=== PATIENT | female | born 1975 | race Caucasian/White ===

== ENCOUNTER 2019-04-24 09:47 | Day surgery (SDC) | payer BC ==
[~2019-04-24 09:47] MED LIST: Lactated Ringers 1,000 ML IV SCH; Sodium Chloride 0.9% 10 ML SDV IV PRN; Sodium Chloride 0.9% 10 ML Syringe FLUSH PRN; Sodium Chloride 0.9% 2.5 ML Syringe FLUSH PRN; ceFAZolin 2 GM in Premix Bag 1 BAG IV ONE
--- NOTE | 2019-04-24 10:45 | PCM.PREANE ---
Preanesthetic Assessment - Anesthesia/Transfusion/Family Hx Anesthesia History: Prior Anesthesia Without Reaction Transfusion History: No Prior Transfusion(s) - Review of Systems General: No Symptoms Pulmonary: No Symptoms Cardiovascular: No Symptoms Gastrointestinal: Abdominal Pain Neurological: No Symptoms Other: Reports: None - Physical Assessment NPO Status Date: 04/23/19 Height: 5 ft 4 in Weight: 97.522 kg ASA Class: 3 Mental Status: Alert & Oriented x3 Airway Class: Mallampati = 2 Dentition: Reports: Normal Dentition ROM/Head Extension: Full - Lab Values: Laboratory Last Values Urine HCG, Qual NEGATIVE (NEGATIVE) 04/24/19 10:00 - Allergies Allergies/Adverse Reactions: Allergies Allergy/AdvReac Type Severity Reaction Status Date / Time latex Allergy Hives Verified 04/20/19 14:33 - Blood Blood Available: No - Anesthesia Plan Pre-Op Medication Ordered: Other (fent iv in pre op holding, 50+50) - Acknowledgements Anesthesia Type Planned: General Anesthesia Pt an Appropriate Candidate for the Planned Anesthesia: Yes Alternatives and Risks of Anesthesia Discussed w Pt/Guardian: Yes Pt/Guardian Understands and Agrees with Anesthesia Plan: Yes Additional Comments: Medical History missing from surgeons H&P HTN- on ca channel kong sciatica, recent but resolved seizure disorder predating her alcohol withdrawal seizures, last seizure 2 mo ago- not related to alcohol withdrawal alcohol use disorder- severe- in early remission 8-weeks since last slip, 10 yr hx of AUD hx of alcohol withdrawal seizures murmur - unspecified, worked up 10 yr ago with Echo, told benign ADHD - on Adderall hx of thrombocytopenia Pt denies knowing of portal htn and splenomegaly, plt count 49k today, will redraw and repeat hx of anemia- chronic from malabsorption following her gastric bypass anxiety and panic attacks PTSD anesthetic plan: GET PreAnesthesia Questionnaire HEENT History: Reports: None Cardiovascular History: Reports: Heart Murmur, Hypertension Respiratory History: Reports: None Gastrointestinal History: Reports: GERD, Other (See Below) Other Gastrointestinal History: hx colon cancer Genitourinary History: Reports: Renal 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: Musculoskeletal History: Reports: Fracture Other Musculoskeletal History: hx fx ankle, tailbone and elbow Neurological History: Reports: Headaches, Chronic, Seizure Other Neuro History: seizure disorder Psychiatric History: Reports: ADD, Anxiety, Depression, PTSD Endocrine/Metabolic History: Reports: Obesity/BMI 30+ Hematologic History: Reports: None Immunologic History: Reports: None Oncologic (Cancer) History: Reports: Colon Dermatologic History: Reports: None - Past Surgical History Head Surgeries/Procedures: Reports: None HEENT Surgical History: Reports: Naso-Sinus Surgery Other HEENT Surgeries/Procedures: sinus surgerey x5 Cardiovascular Surgical History: Reports: None Respiratory Surgical History: Reports: None GI Surgical History: Reports: Appendectomy, Bariatric Procedure, Cholecystectomy , Colon, Colonoscopy Other GI Surgeries/Procedures: bowel resections x7 for colon cancer, gastric bypass Female Surgical History: Reports: Breast Reduction, Section, Lithotripsy/ESWL Endocrine Surgical History: Reports: None Neurological Surgical History: Reports: None Musculoskeletal Surgical History: Reports: None Oncologic Surgical History: Reports: Other (See Below) Other Oncologic Surgeries/Procedures: juan cath placement and removal Dermatological Surgical History: Reports: None - SUBSTANCE USE Smoking Status *Q: Never Smoker - HOME MEDS Home Medications: Home Meds Acetaminophen/oxyCODONE [Percocet 325-5 MG] 1 tab PO ASDIRECTED PRN 04/20/19 [ History] LORazepam [Ativan] 1 mg PO ASDIRECTED PRN 04/20/19 [History] Lisinopril 20 mg PO DAILY 04/20/19 [History] Omeprazole 20 mg PO DAILY 04/20/19 [History] Ondansetron HCl [Ondansetron] 4 mg PO ASDIRECTED PRN 04/20/19 [History] Promethazine [Phenergan] 1 tab PO ASDIRECTED PRN 04/20/19 [History] Tamsulosin HCl 0.4 mg PO DAILY PRN 04/20/19 [History] buPROPion HCl [Wellbutrin Xl] 300 mg PO DAILY 04/20/19 [History] levETIRAcetam [Keppra] 500 mg PO ASDIRECTED 04/20/19 [History] amLODIPine [Norvasc] 5 mg PO DAILY 04/23/19 [History] - CURRENT (IN HOUSE) MEDS Current Meds: Current Medications Lactated Ringer's (Ringers, Lactated) 1,000 mls @ 100 mls/hr IV ASDIRECTED JOSHUA Sodium Chloride (Saline Flush) 10 ml FLUSH ASDIRECTED PRN PRN Reason: Keep Vein Open Sodium Chloride (Saline Flush) 2.5 ml FLUSH ASDIRECTED PRN PRN Reason: Keep Vein Open Sodium Chloride (Normal Saline) 10 ml IV ASDIRECTED PRN PRN Reason: IV Use Discontinued Medications Cefazolin Sodium/Dextrose 2 gm (/ Premix) 50 mls @ 100 mls/hr IV ONCALL ONE Stop: 04/24/19 00:30
[2019-04-24] MEDS ORDERED: fentaNYL 50 MCG/ML SDV IVPUSH ONE ×2 (11:33→13:42)
[2019-04-24 11:35] LABS: BLOOD UREA NITROGEN,BUN 10 mg/dL (7.0-18.0); CARBON DIOXIDE,CO2 22.4 mmol/L (21.0-32.0); CHLORIDE,CL 107 mmol/L (98-107); GLUCOSE RANDOM 80 mg/dL (74-106); POTASSIUM,K 4.7 mmol/L (3.5-5.1); SODIUM,NA 141 mmol/L (136-145)
[2019-04-24] MEDS ORDERED: fentaNYL 100 MCG/2 ML SDV IVPUSH ONE (12:15)
[2019-04-24] MEDS ORDERED: Sugammadex Sodium 200 MG/2 ML VIAL ONE (12:16)
[2019-04-24] MEDS ORDERED: Ondansetron 4 MG/2 ML SDV ONE (12:18)
[2019-04-24] MEDS ORDERED: Iopamidol 408 MG/ML 50 ML SDV ONE (12:18)
[2019-04-24] MEDS ORDERED: Propofol 200 MG/20 ML SDV ONE (12:19)
[2019-04-24] MEDS ORDERED: Ketorolac 30 MG/ML SDV ONE (12:19)
[2019-04-24] MEDS ORDERED: Rocuronium 100 MG/10 ML Syringe ONE (12:19)
[2019-04-24] MEDS ORDERED: fentaNYL 100 MCG/2 ML SDV ONE ×2 (12:19→13:45)
[2019-04-24] MEDS ORDERED: Midazolam 1 MG/ML 2 ML SDV ONE (12:20)
[2019-04-24] MEDS ORDERED: ceFAZolin 1 GM Vial ONE (12:54)
[2019-04-24] MEDS ORDERED: Dexamethasone 4 MG/ML 5 ML MDV ONE (13:19)
[2019-04-24] MEDS ORDERED: PROMETHAZINE PO PRN (13:25)
[2019-04-24] MEDS ORDERED: Acetaminophen/oxyCODONE 325-5 MG Tab PO PRN (13:25)
[2019-04-24] MEDS ORDERED: Ondansetron 4 MG Tab PO PRN (13:25)
[2019-04-24] MEDS ORDERED: LORazepam 1 MG Tab PO PRN (13:25)
[2019-04-24] MEDS ORDERED: levETIRAcetam 500 MG Tab PO SCH (13:30)
[2019-04-24] MEDS ORDERED: Acetaminophen 1,000 MG in Premix Bag 1 BAG IV ONE (14:12)
--- NOTE | 2019-04-24 14:15 | PCM.POSTAN ---
POST ANESTHESIA ASSESSMENT - MENTAL STATUS Mental Status: Alert, Oriented - VITAL SIGNS Vital Signs: Last Vital Signs Temp 98.1 F 04/24/19 13:24 Pulse 70 04/24/19 13:50 Resp 11 L 04/24/19 13:50 BP 109/70 04/24/19 13:50 Pulse Ox 97 04/24/19 13:50 - RESPIRATORY Respiratory Status: Respiratory Rate WNL, Airway Patent, O2 Saturation Stable - CARDIOVASCULAR CV Status: Pulse Rate WNL, Blood Pressure Stable - GASTROINTESTINAL GI Status: No Symptoms - POST OP HYDRATION Hydration Status: Adequate & Stable - OBSERVATIONS Free Text/Narrative:: full bladder, wants to pee. has no catheter or stent.
--- NOTE | 2019-04-24 14:24 | PCM48HPAN ---
Post Anesthesia Note - EVALUATION WITHIN 48HRS OF ANESTHETIC Vital Signs in Normal Range: Yes Patient Participated in Evaluation: Yes Respiratory Function Stable: Yes Airway Patent: Yes Cardiovascular Function Stable: Yes Hydration Status Stable: Yes Pain Control Satisfactory: Yes Nausea and Vomiting Control Satisfactory: Yes Mental Status Recovered: Yes Vital Signs: Last Vital Signs Temp 98.1 F 04/24/19 13:24 Pulse 70 04/24/19 13:50 Resp 11 L 04/24/19 13:50 BP 109/70 04/24/19 13:50 Pulse Ox 97 04/24/19 13:50
--- NOTE | 2019-04-24 16:58 | OR ---
SURGEON: Sonia Richards M.D. DATE OF PROCEDURE: 04/24/2019 PREOPERATIVE DIAGNOSIS: Right lower ureteral stones. POSTOPERATIVE DIAGNOSIS: Right lower ureteral stones. OPERATION: Ureteroscopy, removal of stones. DESCRIPTION OF PROCEDURE: The patient was given general anesthesia. She was placed in dorsal lithotomy position, prepped and draped in sterile drapes. Cystourethroscopy was done that was normal. A guidewire was advanced alongside the stone in the right ureter all the way up into the renal pelvis. The lower ureter was dilated using a UroMax II balloon dilator to approximately 15-Yoruba. The 12 rigid ureteroscope was advanced in the right ureter. Both stones were removed. The first stone was removed with a grasper. The second one, which was smaller, was removed with the Zero Tip basket. Minimal disruption to the ureter. The bladder was emptied. The guidewire was removed, and the patient was moved to recovery room in good condition. ALISIA / SERGIO /[id number]
[2019-04-25] MEDS ORDERED: Omeprazole 20 MG Cap.CR PO SCH (07:30)
[2019-04-25] MEDS ORDERED: amLODIPine 5 MG Tab PO SCH (09:00)
[2019-04-25] MEDS ORDERED: Lisinopril 10 MG Tab PO SCH (09:00)
[2019-04-25] MEDS ORDERED: buPROPion 150 MG Tab.ER PO SCH (09:00)
--- NOTE | 2019-04-27 14:11 | CR ---
Abdomen: Single fluoroscopic spot view of the abdomen was obtained utilizing C- arm device. Study shows a balloon catheter within the right ureter. No further imaging was performed. Fluoroscopy time was 4.05 seconds Impression: Procedural study. Diagnostic code #2 MTDD
== END 2019-04-24 15:08 | disposition home or self-care (01) ==
LOC: MW.SDS 09:47
PROVIDERS: ATTEND Urology
DX: N20.1 Calculus of ureter (principal); K21.9 Gastro-esophageal reflux disease without esophagitis; I10 Essential (primary) hypertension; F90.9 Attention-deficit hyperactivity disorder, unspecified type; F41.9 Anxiety disorder, unspecified; F32.9 Major depressive disorder, single episode, unspecified; E66.9 Obesity, unspecified; Z79.899 Other long term (current) drug therapy; Z91.040 Latex allergy status
CPT/HCPCS: 36415; 52352; 76000; 80048; 81025; 83735; 85025; J0131; J0690; J1100; J1885; J2250; J2405; J2704; J3010; J3490; J7120; Q9966; 88300; C1769

== ENCOUNTER 2019-06-19 11:48 | Emergency (ER) | payer BC ==
[2019-06-19] MEDS ORDERED: Sodium Chloride 0.9% 1,000 ML IV ONE (12:16)
[2019-06-19] MEDS ORDERED: Ketorolac 30 MG/ML SDV IVPUSH ONE (12:16)
[2019-06-19] MEDS ORDERED: Ondansetron 4 MG/2 ML SDV IVPUSH ONE (12:16)
[2019-06-19] MEDS ORDERED: Ondansetron 4 MG Tab.DIS PO ONE (12:58)
[2019-06-19] MEDS ORDERED: Acetaminophen/HYDROcodone 325-7.5 MG Tab PO ONE (13:11)
[2019-06-19 14:37] LABS: BLOOD UREA NITROGEN,BUN 11 mg/dL (7.0-18.0); CARBON DIOXIDE,CO2 24.3 mmol/L (21.0-32.0); CHLORIDE,CL 103 mmol/L (98-107); GLUCOSE RANDOM 85 mg/dL (74-106); POTASSIUM,K 4.1 mmol/L (3.5-5.1); SODIUM,NA 138 mmol/L (136-145)
[2019-06-19] MEDS ORDERED: Morphine 2 MG/ML Syringe IVPUSH ONE (14:38)
--- NOTE | 2019-06-19 14:47 | CT ---
EXAM DATE: 06/19/19 PATIENT'S AGE: 44 CT abdomen and pelvis Technique: Multiple axial sections were obtained from above the dome of the diaphragm inferiorly through the pubic symphysis. Intravenous and oral contrast not utilized. Study has been performed as a ureteral stone protocol. Comparison: Prior abdominal x-ray of 04/20/19. Several vague calcifications are seen within both kidneys compatible with very small nonobstructing calculi. No ureteral dilatation or ureteral stone is seen. Incidental bilateral breast prosthesis are noted. Calcifying area is seen within the mid left breast presumably benign. Visualized lung bases show nothing acute. Noncontrast appearance of the liver shows no discrete abnormality. Spleen appears within normal limits. Pancreas shows no discrete abnormality. Surgical clips are seen from prior cholecystectomy. Prior stomach surgery is seen as well as bowel surgery. Adrenal glands show no nodule. Aorta shows no aneurysm. No retroperitoneal adenopathy is seen. Anterior abdominal wall hernia is seen which contains a loop of nondilated bowel. This appears to be due to an umbilicus hernia. No pelvic mass or adenopathy is seen. No free fluid or inflammatory change is seen. Appendix not visualized with certainty. Bone window settings were reviewed which showed no discrete acute osseous finding. Impression: 1. Multiple small nonobstructing calculi within both kidneys. No ureteral dilatation or ureteral stone is seen. 2. Previous bowel surgery. Other findings which are felt to be incidental. 3. Nothing acute is appreciated on noncontrast CT study of the abdomen and pelvis. Diagnostic code #2 This report was dictated in [place] Standard Time Report Signed by Proxy. [facility] HOSPITALBrielle
--- NOTE | 2019-06-19 15:14 | EDM.PDOC ---
ED HPI GENERAL MEDICAL PROBLEM - General Chief Complaint: Genitourinary Problem Stated Complaint: POSSIBLE KIDNEY STONE Time Seen by Provider: 06/19/19 15:12 Source of Information: Reports: Patient - History of Present Illness INITIAL COMMENTS - FREE TEXT/NARRATIVE: HISTORY AND PHYSICAL: History of present illness: [Patient presents with right lower quadrant pain, she has a history of renal stones and states similar pain the passing kidney stone however in no distress no obvious pain behaviors She rates pain 7 out of 10 at maximal currently 3 out of 10] mild nausea no vomiting no chills or sweats no chest pain shortness breath headache dizziness palpitation no bowel or urine symptoms Review of systems: As per history of present illness and below otherwise all systems reviewed and negative. Past medical history: As per history of present illness and as reviewed below otherwise noncontributory. Surgical history: As per history of present illness and as reviewed below otherwise noncontributory. Social history: No reported history of drug or alcohol abuse. Family history: As per history of present illness and as reviewed below otherwise noncontributory. Physical exam: HEENT: Atraumatic, normocephalic, pupils reactive, negative for conjunctival pallor or scleral icterus, mucous membranes moist, throat clear, neck supple, nontender, trachea midline. Lungs: Clear to auscultation, breath sounds equal bilaterally, chest nontender. Heart: S1S2, regular, negative for clicks, rubs, or JVD. Abdomen: Soft, nondistended, nontender. Negative for masses or hepatosplenomegaly. Negative for costovertebral tenderness. Pelvis: Stable nontender. Genitourinary: Deferred. Rectal: Deferred. Extremities: Atraumatic, negative for cords or calf pain. Neurovascular unremarkable. Neuro: Awake, alert, oriented. Cranial nerves II through XII unremarkable. Cerebellum unremarkable. Motor and sensory unremarkable throughout. Exam nonfocal. Diagnostics: [] Therapeutics: [Oral saline Zofran Toradol Morphine [place] reglan reglan toradol Patient follow-up with primary care and/or Dr. Cox ] Impression: [ abdominal pain Current amount of gas on CT cannot Rule out drug-seeking behavior] Definitive disposition and diagnosis as appropriate pending reevaluation and review of above. Right Abdomen Pain Score (Numeric/FACES): 7 - Related Data Allergies Allergy/AdvReac Type Severity Reaction Status Date / Time latex Allergy Hives Verified 06/19/19 12:08 Home Meds: Home Meds LORazepam [Ativan] 1 mg PO ASDIRECTED PRN 04/20/19 [History] Omeprazole 20 mg PO DAILY 04/20/19 [History] levETIRAcetam [Keppra] 500 mg PO ASDIRECTED 04/20/19 [History] amLODIPine [Norvasc] 5 mg PO DAILY 04/23/19 [History] Past Medical History HEENT History: Reports: None Cardiovascular History: Reports: Heart Murmur, Hypertension Respiratory History: Reports: None Gastrointestinal History: Reports: GERD, Other (See Below) Other Gastrointestinal History: hx colon cancer Genitourinary History: Reports: Renal Calculus 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: Musculoskeletal History: Reports: Fracture Other Musculoskeletal History: hx fx ankle, tailbone and elbow Neurological History: Reports: Headaches, Chronic, Seizure Other Neuro History: seizure disorder Psychiatric History: Reports: ADD, Anxiety, Depression, PTSD Endocrine/Metabolic History: Reports: Obesity/BMI 30+ Hematologic History: Reports: None Immunologic History: Reports: None Oncologic (Cancer) History: Reports: Colon Dermatologic History: Reports: None - Infectious Disease History Infectious Disease History: Reports: Chicken Pox - Past Surgical History Head Surgeries/Procedures: Reports: None HEENT Surgical History: Reports: Adenoidectomy, Naso-Sinus Surgery, Tonsillectomy Other HEENT Surgeries/Procedures: sinus surgerey x5 Cardiovascular Surgical History: Reports: None Respiratory Surgical History: Reports: None GI Surgical History: Reports: Appendectomy, Bariatric Procedure, Cholecystectomy , Colon, Colonoscopy Other GI Surgeries/Procedures: bowel resections x7 for colon cancer, gastric bypass Female Surgical History: Reports: Breast Reduction, Section, Kidney stone extraction, Lithotripsy/ESWL Endocrine Surgical History: Reports: None Neurological Surgical History: Reports: None Musculoskeletal Surgical History: Reports: None Oncologic Surgical History: Reports: Other (See Below) Other Oncologic Surgeries/Procedures: juan cath placement and removal Dermatological Surgical History: Reports: None Social & Family History - Tobacco Use Smoking Status *Q: Former Smoker Used Tobacco, but Quit: Yes Month/Year Tobacco Last Used: 2008 - Recreational Drug Use Recreational Drug Use: No ED ROS GENERAL - Review of Systems Review Of Systems: See Below ED EXAM, GENERAL - Physical Exam Exam: See Below Course - Vital Signs Last Recorded V/S: Last Vital Signs Temp 97.8 F 06/19/19 12:05 Pulse 97 06/19/19 12:05 Resp 18 06/19/19 12:05 BP 128/83 06/19/19 12:05 Pulse Ox 99 06/19/19 12:05 - Orders/Labs/Meds Orders: Active Orders 24 hr Category Date Time Status Metoclopramide [Reglan] Med 06/19/19 15:15 Once 10 mg IV ONETIME ONE Labs: Laboratory Tests 06/19/19 06/19/19 06/19/19 Range/Units 12:25 12:25 13:35 WBC 5.95 (4.0-11.0) K/uL RBC 4.15 L (4.30-5.90) M/uL Hgb 11.7 L (12.0-16.0) g/dL Hct 35.5 L (36.0-46.0) % MCV 85.5 (80.0-98.0) fL MCH 28.2 (27.0-32.0) pg MCHC 33.0 (31.0-37.0) g/dL RDW Std Deviation 47.7 (28.0-62.0) fl RDW Coeff of Michel 15 (11.0-15.0) % Plt Count 254 (150-400) K/uL MPV 10.10 (7.40-12.00) fL Neut % (Auto) 63.1 (48.0-80.0) % Lymph % (Auto) 22.5 (16.0-40.0) % [place] % (Auto) 13.3 (0.0-15.0) % Eos % (Auto) 0.8 (0.0-7.0) % Baso % (Auto) 0.3 (0.0-1.5) % Neut # (Auto) 3.8 (1.4-5.7) K/uL Lymph # (Auto) 1.3 (0.6-2.4) K/uL [place] # (Auto) 0.8 (0.0-0.8) K/uL Eos # (Auto) 0.1 (0.0-0.7) K/uL Baso # (Auto) 0.0 (0.0-0.1) K/uL Nucleated RBC % 0.0 /100WBC Nucleated RBCs # 0 K/uL Sodium (136-145) mmol/L Potassium (3.5-5.1) mmol/L Chloride (98-107) mmol/L Carbon Dioxide (21.0-32.0) mmol/L BUN (7.0-18.0) mg/dL Creatinine (0.6-1.0) mg/dL Est Cr Clr Drug Dosing mL/min Estimated GFR (MDRD) ml/min Glucose (74-106) mg/dL Calcium (8.5-10.1) mg/dL Total Bilirubin (0.2-1.0) mg/dL AST (15-37) IU/L ALT (14-63) IU/L Alkaline Phosphatase (46-116) U/L Total Protein (6.4-8.2) g/dL Albumin (3.4-5.0) g/dL Globulin (2.6-4.0) g/dL Albumin/Globulin Ratio (0.9-1.6) Urine Color YELLOW Urine Appearance SLT CLOUDY Urine pH 6.5 (5.0-8.0) Ur Specific [place] <= 1.005 (1.001-1.035) Urine Protein NEGATIVE (NEGATIVE) mg/dL Urine Glucose (UA) NEGATIVE (NEGATIVE) mg/dL Urine Ketones NEGATIVE (NEGATIVE) mg/dL Urine Occult Blood NEGATIVE (NEGATIVE) Urine Nitrite NEGATIVE (NEGATIVE) Urine Bilirubin NEGATIVE (NEGATIVE) Urine Urobilinogen 0.2 (<2.0) EU/dL Ur Leukocyte Esterase NEGATIVE (NEGATIVE) Urine HCG, Qual NEGATIVE (NEGATIVE) 06/19/19 Range/Units 13:35 WBC (4.0-11.0) K/uL RBC (4.30-5.90) M/uL Hgb (12.0-16.0) g/dL Hct (36.0-46.0) % MCV (80.0-98.0) fL MCH (27.0-32.0) pg MCHC (31.0-37.0) g/dL RDW Std Deviation (28.0-62.0) fl RDW Coeff of Michel (11.0-15.0) % Plt Count (150-400) K/uL MPV (7.40-12.00) fL Neut % (Auto) (48.0-80.0) % Lymph % (Auto) (16.0-40.0) % [place] % (Auto) (0.0-15.0) % Eos % (Auto) (0.0-7.0) % Baso % (Auto) (0.0-1.5) % Neut # (Auto) (1.4-5.7) K/uL Lymph # (Auto) (0.6-2.4) K/uL [place] # (Auto) (0.0-0.8) K/uL Eos # (Auto) (0.0-0.7) K/uL Baso # (Auto) (0.0-0.1) K/uL Nucleated RBC % /100WBC Nucleated RBCs # K/uL Sodium 138 (136-145) mmol/L Potassium 4.1 (3.5-5.1) mmol/L Chloride 103 (98-107) mmol/L Carbon Dioxide 24.3 (21.0-32.0) mmol/L BUN 11 (7.0-18.0) mg/dL Creatinine 0.8 (0.6-1.0) mg/dL Est Cr Clr Drug Dosing 78.30 mL/min Estimated GFR (MDRD) > 60.0 ml/min Glucose 85 (74-106) mg/dL Calcium 9.4 (8.5-10.1) mg/dL Total Bilirubin 0.2 (0.2-1.0) mg/dL AST 15 (15-37) IU/L ALT 19 (14-63) IU/L Alkaline Phosphatase 42 L (46-116) U/L Total Protein 8.1 (6.4-8.2) g/dL Albumin 4.1 (3.4-5.0) g/dL Globulin 4.0 (2.6-4.0) g/dL Albumin/Globulin Ratio 1.0 (0.9-1.6) Urine Color Urine Appearance Urine pH (5.0-8.0) Ur Specific [place] (1.001-1.035) Urine Protein (NEGATIVE) mg/dL Urine Glucose (UA) (NEGATIVE) mg/dL Urine Ketones (NEGATIVE) mg/dL Urine Occult Blood (NEGATIVE) Urine Nitrite (NEGATIVE) Urine Bilirubin (NEGATIVE) Urine Urobilinogen (<2.0) EU/dL Ur Leukocyte Esterase (NEGATIVE) Urine HCG, Qual (NEGATIVE) Meds: Medications Discontinued Medications Generic Name Dose Route Start Last Admin Trade Name [place] PRN Reason Stop Dose Admin Hydrocodone Bitart/Acetaminophen 1 tab 06/19/19 13:11 06/19/19 13:20 [place] 325-7.5 Mg PO 06/19/19 13:12 1 tab STAT ONE Administration Sodium Chloride 1,000 mls @ 999 mls/hr 06/19/19 12:16 06/19/19 13:41 Normal Saline IV 06/19/19 13:16 999 mls/hr STAT ONE Administration Ketorolac Tromethamine 30 mg 06/19/19 12:16 06/19/19 13:42 Toradol IVPUSH 06/19/19 12:17 30 mg ONETIME ONE Administration Morphine Sulfate 2 mg 06/19/19 14:38 06/19/19 14:45 Morphine IVPUSH 06/19/19 14:39 2 mg ONETIME ONE Administration Ondansetron HCl 8 mg 06/19/19 12:16 06/19/19 13:42 Zofran IVPUSH 06/19/19 12:17 4 mg ONETIME ONE Administration Ondansetron HCl 8 mg 06/19/19 12:58 06/19/19 13:01 Zofran Odt PO 06/19/19 12:59 8 mg ONETIME ONE Administration Departure - Departure Time of Disposition: 15:16 Disposition: Home, Self-Care 01 Condition: Good Clinical Impression: Abdominal pain - Discharge Information Referrals: PCP,None [Primary Care Provider] - Forms: ED Department Discharge Additional Instructions: The following information is given to patients seen in the emergency department who are being discharged to home. This information is to outline your options for follow-up care. We provide all patients seen in our emergency department with a follow-up referral. The need for follow-up, as well as the timing and circumstances, are variable depending upon the specifics of your emergency department visit. If you don't have a primary care physician on staff, we will provide you with a referral. We always advise you to contact your personal physician following an emergency department visit to inform them of the circumstance of the visit and for follow-up with them and/or the need for any referrals to a consulting specialist. The emergency department will also refer you to a specialist when appropriate. This referral assures that you have the opportunity for follow-up care with a specialist. All of these measure are taken in an effort to provide you with optimal care, which includes your follow-up. Under all circumstances we always encourage you to contact your private physician who remains a resource for coordinating your care. When calling for follow-up care, please make the office aware that this follow-up is from your recent emergency room visit. If for any reason you are refused follow-up, please contact the [facility] emergency department at and asked to speak to the emergency department charge nurse. - My Orders Last 24 Hours: My Active Orders 06/19/19 15:15 Metoclopramide [Reglan] 10 mg IV ONETIME ONE - Assessment/Plan Last 24 Hours: My Active Orders 06/19/19 15:15 Metoclopramide [Reglan] 10 mg IV ONETIME ONE
[2019-06-19] MEDS ORDERED: Metoclopramide 10 MG/2 ML SDV IV ONE (15:15)
== END 2019-06-19 15:35 | disposition home or self-care (01) ==
LOC: MW.ED 11:48
DX: R10.31 Right lower quadrant pain (principal); I10 Essential (primary) hypertension; K21.9 Gastro-esophageal reflux disease without esophagitis; E66.9 Obesity, unspecified; F41.9 Anxiety disorder, unspecified; F32.9 Major depressive disorder, single episode, unspecified; Z68.36 Body mass index [BMI] 36.0-36.9, adult; Z87.891 Personal history of nicotine dependence; Z79.899 Other long term (current) drug therapy; Z91.040 Latex allergy status; Z90.89 Acquired absence of other organs; Z90.49 Acquired absence of other specified parts of digestive tract
CPT/HCPCS: 36415; 74176; 80053; 81003; 81025; 85025; 96361; 96374; 96375; 99284; A9270; J1885; J2270; J2405; J7040